=== PATIENT | male | born 1930 | race Caucasian/White ===

== ENCOUNTER 2016-12-09 11:23 | Inpatient (IN) | payer MEDICARE, BC ==
[~2016-12-09 11:23] MED LIST: AMIODARONE HCL100 MG PO; ANTIVERT-DPS25 MG PO; ASA CHILDREN'S81 MG PO; ASPIRIN EC81 MG PO; BUDESONIDE0.5 MG/2 M IH; CEFTIN DPS500 MG PO; CITRATE OF MAG296 ML PO; CORDARONE200 MG PO; COREG DPS12.5 MG PO; COREG DPS6.25 MG PO; COUMADIN5 MG PO; DELTASONE DPS10 MG PO; DELTASONE DPS20 MG PO; DULCOLAX-DPS10 MG PO; DULCOLAX-DPS5 MG PO; DUONEB DPS3 ML IH; DUONEB DPS3 ML PO; FIBERCON DPS625 MG PO; FLEXERIL DPS5 MG PO; FLONASE 0.05% D16 GM NS; GLUCOPHAGE-DPS500 MG PO; GLUCOPHAGE1000 MG PO; KLOR-CON 1010 MEQ PO; KLOR-CON M1010 MEQ PO; LASIX DPS40 MG PO; LASIX DPS80 MG PO; LEVAQUIN DPS750 MG PO; MAALOX DPS30 ML PO; MONTELUKAST SOD10 MG PO; MUCINEX600 MG PO; MYLICON DPS80 MG PO; NILSTAT SUSP DPS5 ML PO; NITROSTAT0.4 MG SL; NIZORAL DPS30 GM TP; NORCO 5-325 TA1 EACH PO; PEPCID DPS20 MG PO; POLYETHYLENE GL17 GM PO; PRAVACHOL40 MG PO; PRILOSEC DPS20 MG PO; PROVENTIL HFA6.7 GM IH; PULMICORT0.5 MG/2 M IH; SURFAK DPS240 MG PO; TYLENOL DPS325 MG PO; VIAGRA100 MG PO; VIBRAMYCIN-DPS100 M2 PO
[2016-12-13] MEDS ORDERED: DELTASONE DPS5 MG PO (06:30)
[2016-12-13] MEDS ORDERED: FLOMAX DPS0.4 MG PO (06:31)
[2016-12-13] MEDS ORDERED: LEVAQUIN DPS500 MG PO (06:31)
[2016-12-13] MEDS ORDERED: IRON325 M1 PO (06:31)
[2017-07-12] MEDS ORDERED: COREG DPS6.25 MG PO (16:27)
[2017-07-12] MEDS ORDERED: LASIX DPS40 MG PO (16:27)
[2017-07-12] MEDS ORDERED: GLUCOPHAGE1000 MG PO (16:27)
[2017-07-12] MEDS ORDERED: MICRO-K DPS10 MEQ PO (16:27)
[2017-07-12] MEDS ORDERED: MONTELUKAST SOD10 MG PO (16:28)
[2017-07-12] MEDS ORDERED: AMIODARONE HCL100 MG PO (16:28)
[2017-07-12] MEDS ORDERED: PRAVACHOL40 MG PO (16:28)
[2017-07-12] MEDS ORDERED: FEOSOL-DPS325 MG PO (16:29)
[2017-07-12] MEDS ORDERED: DUONEB DPS3 ML IH (16:29)
[2017-07-12] MEDS ORDERED: FLOMAX DPS0.4 MG PO (16:29)
[2017-07-12] MEDS ORDERED: MUCINEX600 MG PO (16:29)
[2017-07-12] MEDS ORDERED: PULMICORT0.5 MG/2 M IH (16:30)
[2017-07-12] MEDS ORDERED: COUMADIN5 MG PO (16:30)
[2017-07-12] MEDS ORDERED: ASA CHILDREN'S81 MG PO (16:30)
[2017-07-12] MEDS ORDERED: PRILOSEC DPS20 MG PO (16:30)
[2017-07-12] MEDS ORDERED: LEVAQUIN DPS500 MG PO (16:31)
== END 2016-12-12 10:40 | disposition home or self-care (01) | DRG 291 ==
DX: I11.0 Hypertensive heart disease with heart failure (principal); J96.01 Acute respiratory failure with hypoxia; J18.1 Lobar pneumonia, unspecified organism; J44.0 Chronic obstructive pulmonary disease with (acute) lower respiratory infection; J84.10 Pulmonary fibrosis, unspecified; I42.9 Cardiomyopathy, unspecified; D50.9 Iron deficiency anemia, unspecified; E11.9 Type 2 diabetes mellitus without complications; I50.23 Acute on chronic systolic (congestive) heart failure; E53.8 Deficiency of other specified B group vitamins; I48.0 Paroxysmal atrial fibrillation; I25.10 Atherosclerotic heart disease of native coronary artery without angina pectoris; G47.33 Obstructive sleep apnea (adult) (pediatric); M48.00 Spinal stenosis, site unspecified; G25.81 Restless legs syndrome; E03.9 Hypothyroidism, unspecified; E78.5 Hyperlipidemia, unspecified; Z95.810 Presence of automatic (implantable) cardiac defibrillator; Z87.891 Personal history of nicotine dependence; Z79.84 Long term (current) use of oral hypoglycemic drugs